=== PATIENT | female | born 1965 | race Caucasian/White ===

== ENCOUNTER 2017-04-11 18:58 | Emergency (ER) | payer BC ==
[~2017-04-11] VITALS: Ht 175.3 cm; Wt 80.0 kg
[~2017-04-11 18:58] MED LIST: ALBUAER2 INH; ALPR-411 PO; ASPI81TA28 PO; BUME1TAB PO; CYNI1000 INJ; DIPH25TA2 PO; EFF75 PO; FERR325T51 PO; FLNIN NAE; GABA-113 PO; IRON20IN IV; LIDO1PAD2 TD; LRS20 PO; MIRT30TA3 PO; MORP1TAB12 PO; NATURAL SUPPLEMENT PO; OXYC-164 PO; RANI300T2 PO; STLS PO; TRIA0.1C20 EXT
[2017-04-11 19:07] VITALS: TEMP 36.8; Ht 175.3 cm; Wt 80.0 kg
[2017-04-11] MEDS ORDERED: SODIUM CHLORIDE 0.9% 1000ML 1,000 ML IV STA ×3 (19:12→22:25)
[2017-04-11] MEDS ORDERED: ONDANSETRON INJ 2 MG/ML 2 ML VIAL IV STA (19:12)
[2017-04-11] MEDS ORDERED: OPTIRAY 320 IV PRN (19:30)
[2017-04-11] MEDS ORDERED: PRED10TA PO (19:40)
[2017-04-11] MEDS ORDERED: FRRS300 PO (19:40)
[2017-04-11] MEDS ORDERED: VNTHFA/IN INH (19:40)
[2017-04-11] MEDS ORDERED: DOXY100C2 PO (19:40)
[2017-04-11] MEDS ORDERED: LRS20 PO (19:40)
[2017-04-11] MEDS ORDERED: FLUT0.15 NAE (19:40)
[2017-04-11] MEDS ORDERED: OFLO0.3S4 OT (19:40)
[2017-04-11 19:43] LABS: BASO % 0.1 %; BASO ABS # 0.02 K/uL (0-0.2); COMPLETE YES; HEMATOCRIT 41.6 % (37-47); IG% 0.2 %; LYMPH % 7.1 %; LYMPH ABS # 1.01 K/uL (1.2-3.4); MEAN CORPUSCULAR HEMOGLOBIN 30.2 pg (25-34); MEAN CORPUSCULAR HGB CONC 33.2 g/dl (32-36); MEAN PLATELET VOLUME 11.3 fL (7.4-10.4); MONO % 5.4 %; NEUT % 87.2 %; PLATELET COUNT 193 K/uL (130-400); RED BLOOD COUNT 4.57 M/uL (4.2-5.4); WHITE BLOOD COUNT 14.17 K/uL (4.8-10.8)
[2017-04-11] MEDS: MoRPHine SULFATE 4 MG/ML 1 ML CARP\\VIAL IV PRN ×3 (19:49→23:29)
[2017-04-11 19:53] LABS: ISTAT CREATININE 0.8 mg/dl (0.6-1.3); ISTAT HEMOGLOBIN 13.9 g/dl (12.0-16.0); ISTAT IONIZED CALCIUM 1.08 mmol/l (1.12-1.32)
[2017-04-11 20:00] LABS: BUN/CREATININE RATIO 12.1 (10-20); CALCIUM 8.8 mg/dl (8.5-10.1); CREATININE 0.85 mg/dl (0.60-1.20); POTASSIUM 3.8 mmol/L (3.5-5.1)
[2017-04-11] MEDS ORDERED: FAMOTIDINE 20MG/102 ML D5W IV STA (21:07)
[2017-04-11] MEDS ORDERED: CEFOXITIN 2000MG/60 ML D5W IV STA (21:19)
--- NOTE | 2017-04-11 21:21 | DIAGNOSTIC IMAGING REPORT ---
CT ABD/PELVIS IV CONTRAST ONLY CLINICAL HISTORY: Upper abdominal pain. History of gastric bypass. COMPARISON STUDY: None. TECHNIQUE: Following the IV administration of 115 mL of Optiray-320, CT scan of the abdomen and pelvis was performed from the lung bases to the proximal femurs. Images are reviewed in the axial, sagittal, and coronal planes. IV contrast was administered without complication. CT DOSE: 705.04 mGycm FINDINGS: Lower chest: There are minor basilar atelectatic changes Liver: No focal hepatic masses are visualized. There is focal fat adjacent the falciform ligament. There is mild intra and extrahepatic biliary ductal dilatation. The common bile duct measures 12 mm. Gallbladder: Surgically absent Spleen: There is perisplenic fluid. No intrinsic splenic lesions are visualized. Pancreas: There is hyperdense fluid surrounding the inferior aspect of the stomach, the pancreas, as well as the splenic vein. The collection measures approximately 10 cm. There are multiple splenic varices. Likely diagnostic considerations include acute pancreatitis, or a retroperitoneal hemorrhage, unrelated to acute pancreatitis Adrenal glands: Unremarkable. Kidneys: There is symmetric renal cortical enhancement. The kidneys are normal in size without hydronephrosis. Bowel: There are no transition zones indicate bowel obstruction. There are postsurgical changes of a gastric bypass. There is no acute diverticulitis. The appendix appears normal. Peritoneum: There is minimal pelvic fluid. There is a small amount of fluid within the left paracolic gutter. Vasculature: The abdominal aorta is normal in course and caliber. Adenopathy: None. Pelvic viscera: The uterus appears surgically absent. Skeletal structures: No destructive osseous lesions are seen. IMPRESSION: 1. Complex left upper quadrant retroperitoneal fluid collection enveloping the pancreas, inferior aspect of the stomach, and surrounding the spleen. This measures in excess of 10 cm. Likely diagnostic considerations include acute pancreatitis, or a retroperitoneal hemorrhage unrelated to acute pancreatitis 2. No evidence of bowel obstruction. No evidence of free air 3. No evidence of acute diverticulitis. No evidence of acute appendicitis. 4. Intra and extrahepatic biliary ductal dilatation Electronically signed by: Primo Almonte M.D. 04/11/2017 9:19 PM Dictated Date/Time: 04/11/2017 9:11 PM
[2017-04-11] MEDS ORDERED: PANTOprazole INJ 80 MG in DEXTROSE 5% 100ML IV STA (21:36)
[2017-04-11] MEDS ORDERED: PANTOprazole INJ 40 MG in DEXTROSE 5% 100ML IV SCH (22:00)
--- NOTE | 2017-04-11 22:29 | EMERGENCY ROOM VISIT NOTE ---
History Report prepared by Rosa: Danish Del Rosario Under the Supervision of: Dr. Dwight Wisdom D.O. First contact with patient: 18:59 Chief Complaint: ABDOMINAL PAIN Stated Complaint: AB PAIN History of Present Illness The patient is a 51 year old female who presents to the Emergency Room by EMS with complaints of constant centralized abdominal pain beginning 7.5 hours ago. She has a history of gastric bypass in 2007, endometriosis, and a complete hysterectomy. She has a history of chronic low back pain, but states that it is unchanged. The patient also complains of two episodes of vomiting. She denies any fevers or diarrhea. Source of History: patient Onset: 7.5 hours ago Position: abdomen (centralized) Timing: constant Associated Symptoms: + vomiting (two episodes), No fevers, No diarrhea Review of Systems See HPI for pertinent positives & negatives. A total of 10 systems reviewed and were otherwise negative. Past Medical & Surgical Medical Problems: (1) Allergic rhinitis (2) Cooper's palsy (3) Carpal tunnel syndrome (4) Cauda equina syndrome with neurogenic bladder (5) Chronic pain (6) Depression (7) Gastroesophageal reflux disease (8) HERPES ZOSTER BY HISTORY (9) Hyperlipidemia (10) LEFT FOOT DROP (11) lumbar disc disease (12) Migraine (13) CARABALLO (14) Postconcussion syndrome Family History No pertinent family history Social History Smoking Status: Never Smoker Marital Status: Housing Status: lives with significant other Current/Historical Medications Scheduled Albuterol Hfa (Ventolin Hfa), 2-4 PUFFS INH Q6H Aspirin (Aspirin Ec), 81 MG PO QPM Baclofen (Baclofen), 20 MG PO TID Cyanocobalamin (Cyanocobalamin), 1,000 MCG INJ MONTHLY Doxycycline Hyclate (Vibramycin), 100 MG PO BID Ferrous Sulfate (Ferrous Sulfate), 325 MG PO BID Gabapentin (Neurontin), 300 MG PO TID Iron Sucrose (Venofer), 200 MG IV MONTHLY Mirtazapine (Remeron), 30 MG PO HS Ofloxacin (Oph) (Ocuflox Oph Soln), 1 DROP OT DIRECTED Prednisone (Prednisone), 10 MG PO TAPER Ranitidine (Zantac), 300 MG PO HS Stool Softener (Stool Softener), 1 TAB PO PRN Triamcinolone Acet 0.1% (Aristocort 0.1%), EXT BID UD Venlafaxine Hcl (Effexor), 75 MG PO BID Scheduled PRN Alprazolam (Xanax), 0.5 MG PO BID PRN for Anxiety Bumetanide (Bumex), 2 MG PO DAILY PRN for SWELLING OF FEET Diphenhydramine Hcl (Allergy Relief), 25 MG PO DAILY PRN for ALLERGIC REACTION Fluticasone Propionate (Nasal) (Flonase Allergy Relief), 2 SPRAYS SILVANA DAILY PRN for prn Lidocaine (Lidocaine), 2 PATCH TD DAILY PRN for SHINGLE NERVE PAIN Oxycodone Hcl (Oxycodone Hcl), 30 MG PO Q4H PRN for Pain Allergies Coded Allergies: Penicillins (Verified Allergy, Severe, RASH AND ANAPHYLAXIS, 04/11/17) Oxcarbazepine (Verified Allergy, Mild, ITCHING, 04/11/17) Sulfa Antibiotics (Verified Allergy, Mild, RASH, 04/11/17) Egg (Unverified Allergy, Unknown, unknown, 04/11/17) Furosemide (Verified Allergy, Unknown, RASH AND EXTREMITY SWELLING, ) Methadone (Verified Allergy, Unknown, DYSKINESIAS, 04/11/17) Shrimp (Unverified Allergy, Unknown, unknown, 04/11/17) Omeprazole (Verified Adverse Reaction, Mild, DIARRHEA, 04/11/17) Physical Exam Vital Signs Date Time Temp Pulse Resp B/P (MAP) Pulse Ox O2 Delivery O2 Flow Rate FiO2 04/11/17 22:34 65 18 156/75 96 Room Air 04/11/17 22:01 67 04/11/17 20:43 68 18 145/81 98 Room Air 04/11/17 19:07 36.8 66 20 145/66 99 Room Air Physical Exam GENERAL: Patient is awake, alert, and very anxious and uncomfortable appearing. Appears to be in significant pain. EYES: The conjunctivae are clear. The pupils are round and reactive. EARS, NOSE, MOUTH AND THROAT: The nose is without any evidence of any deformity. Mucous membranes are moist tongue is midline NECK: The neck is nontender and supple. RESPIRATORY: Normal respiratory effort is noted there is no evidence of wheezing rhonchi or rales CARDIOVASCULAR: Regular rate and rhythm noted there no murmurs rubs or gallops normal S1 normal S2 GASTROINTESTINAL: The abdomen is soft with diffuse tenderness to palpation. No specific guarding or rigidity noted. MUSCULOSKELETAL/EXTREMITIES: There is no evidence of gross deformity full range of motion is noted in the hips and shoulders SKIN: There is no obvious evidence of any rash. There are no petechiae, pallor or cyanosis noted. NEUROLOGIC: Patient is awake alert and oriented x3 strength is symmetric patellar reflexes are 2+ bilaterally Medical Decision & Procedures ER Provider Diagnostic Interpretation: CT results as stated below per my review and radiologist interpretation. CT ABD/PELVIS IV CONTRAST ONLY FINDINGS: Lower chest: There are minor basilar atelectatic changes Liver: No focal hepatic masses are visualized. There is focal fat adjacent the falciform ligament. There is mild intra and extrahepatic biliary ductal dilatation. The common bile duct measures 12 mm. Gallbladder: Surgically absent Spleen: There is perisplenic fluid. No intrinsic splenic lesions are visualized. Pancreas: There is hyperdense fluid surrounding the inferior aspect of the stomach, the pancreas, as well as the splenic vein. The collection measures approximately 10 cm. There are multiple splenic varices. Likely diagnostic considerations include acute pancreatitis, or a retroperitoneal hemorrhage, unrelated to acute pancreatitis Adrenal glands: Unremarkable. Kidneys: There is symmetric renal cortical enhancement. The kidneys are normal in size without hydronephrosis. Bowel: There are no transition zones indicate bowel obstruction. There are postsurgical changes of a gastric bypass. There is no acute diverticulitis. The appendix appears normal. Peritoneum: There is minimal pelvic fluid. There is a small amount of fluid within the left paracolic gutter. Vasculature: The abdominal aorta is normal in course and caliber. Adenopathy: None. Pelvic viscera: The uterus appears surgically absent. Skeletal structures: No destructive osseous lesions are seen. IMPRESSION: 1. Complex left upper quadrant retroperitoneal fluid collection enveloping the pancreas, inferior aspect of the stomach, and surrounding the spleen. This measures in excess of 10 cm. Likely diagnostic considerations include acute pancreatitis, or a retroperitoneal hemorrhage unrelated to acute pancreatitis 2. No evidence of bowel obstruction. No evidence of free air 3. No evidence of acute diverticulitis. No evidence of acute appendicitis. 4. Intra and extrahepatic biliary ductal dilatation Electronically signed by: Primo Almonte M.D. Laboratory Results 04/11/17 19:33 Red Blood Count 4.57, Mean Corpuscular Volume 91.0, Mean Corpuscular Hemoglobin 30.2, Mean Corpuscular Hemoglobin Concent 33.2, Mean Platelet Volume 11.3, Neutrophils (%) (Auto) 87.2, Lymphocytes (%) (Auto) 7.1, Monocytes (%) (Auto) 5.4, Eosinophils (%) (Auto) 0.0, Basophils (%) (Auto) 0.1, Neutrophils # (Auto) 12.35, Lymphocytes # (Auto) 1.01, Monocytes # (Auto) 0.76, Eosinophils # (Auto) 0.00, Basophils # (Auto) 0.02 04/11/17 19:33 Test 04/11/17 19:33 04/11/17 19:37 04/11/17 19:41 04/11/17 22:25 White Blood Count 14.17 K/uL (4.8-10.8) Red Blood Count 4.57 M/uL (4.2-5.4) Hemoglobin 13.8 g/dL (12.0-16.0) Hematocrit 41.6 % (37-47) Mean Corpuscular Volume 91.0 fL (80-100) Mean Corpuscular Hemoglobin 30.2 pg (25-34) Mean Corpuscular Hemoglobin Concent 33.2 g/dl (32-36) Platelet Count 193 K/uL (130-400) Mean Platelet Volume 11.3 fL (7.4-10.4) Neutrophils (%) (Auto) 87.2 % Lymphocytes (%) (Auto) 7.1 % Monocytes (%) (Auto) 5.4 % Eosinophils (%) (Auto) 0.0 % Basophils (%) (Auto) 0.1 % Neutrophils # (Auto) 12.35 K/uL (1.4-6.5) Lymphocytes # (Auto) 1.01 K/uL (1.2-3.4) Monocytes # (Auto) 0.76 K/uL (0.11-0.59) Eosinophils # (Auto) 0.00 K/uL (0-0.5) Basophils # (Auto) 0.02 K/uL (0-0.2) RDW Standard Deviation 44.1 fL (36.4-46.3) RDW Coefficient of Variation 13.4 % (11.5-14.5) Immature Granulocyte % (Auto) 0.2 % Immature Granulocyte # (Auto) 0.03 K/uL (0.00-0.02) Prothrombin Time 10.5 SECONDS (9.0-12.0) Prothromb Time International Ratio 1.0 (0.9-1.1) Activated Partial Thromboplast Time 22.9 SECONDS (21.0-31.0) Partial Thromboplastin Ratio 0.9 Est Creatinine Clear Calc Drug Dose 87.7 ml/min Estimated GFR () 91.3 Estimated GFR (Non- 78.8 BUN/Creatinine Ratio 12.1 (10-20) Calcium Level 8.8 mg/dl (8.5-10.1) Total Bilirubin 0.4 mg/dl (0.2-1) Direct Bilirubin 0.1 mg/dl (0-0.2) Aspartate Amino Transf (AST/SGOT) 64 U/L (15-37) Alanine Aminotransferase (ALT/SGPT) 54 U/L (12-78) Alkaline Phosphatase 125 U/L (45-117) Total Protein 6.8 gm/dl (6.4-8.2) Albumin 3.9 gm/dl (3.4-5.0) Amylase Level 40 U/L (25-115) Lipase 196 U/L (73-393) Bedside Lactic Acid Venous 1.82 mmol/L (0.90-1.70) Bedside Hemoglobin 13.9 g/dl (12.0-16.0) Bedside Hematocrit 41 % (37-47) Bedside Sodium 143 mEq/L (135-144) Bedside Potassium 3.7 mEq/L (3.3-5.0) Bedside Chloride 103 mEq/L (101-112) Bedside Total CO2 26 mEq/l (24-31) Anion Gap 19.0 mmol/L (16-25) Bedside Blood Urea Nitrogen 10 mg/dl (7-18) Bedside Creatinine 0.8 mg/dl (0.6-1.3) Bedside Glucose (other) 128 mg/dl (70-99) Bedside Ionized Calcium (Annabel) 1.08 mmol/l (1.12-1.32) Urine Color DK YELLOW Urine Appearance CLEAR (CLEAR) Urine pH 5.0 (4.5-7.5) Urine Specific [place] > 1.045 (1.000-1.030) Urine Protein NEG (NEG) Urine Glucose (UA) 1+ (NEG) Urine Ketones NEG (NEG) Urine Occult Blood NEG (NEG) Urine Nitrite NEG (NEG) Urine Bilirubin NEG (NEG) Urine Urobilinogen NEG (NEG) Urine Leukocyte Esterase NEG (NEG) Laboratory results per my review. Medications Administered Medications (Trade) Dose Ordered Sig/Carli Route Start Time Stop Time Status Last Admin Dose Admin Sodium Chloride 1,000 ml @ 999 mls/hr Q1H1M STAT IV 04/11/17 19:12 04/11/17 20:12 DC 04/11/17 19:48 999 MLS/HR Morphine Sulfate (MoRPHine SULFATE INJ) 4 mg Q15M PRN IV 04/11/17 19:15 04/25/17 19:14 04/11/17 23:29 4 MG Ondansetron HCl (Zofran Inj) 4 mg NOW STAT IV 04/11/17 19:12 04/11/17 19:15 DC 04/11/17 19:48 4 MG Famotidine (Pepcid 20mg/100 ml) 20 mg ONE STAT IV 04/11/17 21:07 04/11/17 21:08 DC 04/11/17 23:05 20 MG Cefoxitin Sodium (Mefoxin 2000mg/ 60 ml D5W) 2,000 mg NOW STAT IV 04/11/17 21:19 04/11/17 21:20 DC 04/11/17 22:32 2,000 MG Sodium Chloride 1,000 ml @ 250 mls/hr Q4H STAT IV 04/11/17 22:25 04/12/17 02:24 04/11/17 22:32 250 MLS/HR ED Course 1904: The patient was evaluated in room B4B. A complete history and physical examination were performed. 1911: Ordered Zofran Inj 4 mg IV, NSS 1,000 ml @ 250 mls/hr IV, NSS 1,000 ml @ 999 mls/hr IV. 1914: Ordered Morphine Sulfate 4 mg IV. 2106: Ordered Pepcid 20 mg/100 mL IV, Protonix IV Bolus/Drip IV. 2118: Ordered Mefoxin 2000 mg/60 mL D5W 2000 mg IV. 2135: Ordered Pantoprazole Sodium 80 mg/Dextrose 120 mL @ 480 mL/hr Iv. 2158: Upon reevaluation, the patient is resting. I discussed results and treatment plan with her. She verbalizes agreement and understanding. I spoke with Dr. Purvis of [facility] Bariatric Surgery . The patient will be transferred to [facility] by ground. 2199: Ordered Pantoprazole Sodium 40 mg/Dextrose 100 mL @ 20 mL/hr IV. 2224: Ordered NSS 1,000 ml @ 250 mls/hr IV. Medical Decision Differential diagnosis: Etiologies such as appendicitis, diverticulitis, PUD, biliary pathology, UTI, pancreatitis, obstruction, mesenteric ischemia, aortic pathology, infections, inflammatory bowel disease, renal colic, as well as others were entertained. Nursing notes reviewed. The patient is a 51-year-old female who presented to emergency department for an evaluation of upper abdominal pain. The patient is a history of gastric bypass and had very severe upper abdominal pain. The patient was treated with IV fluids IV pain medicine and IV antiemetics in the emergency department. Her CAT scan appear to be consistent with an abnormality in the retroperitoneum. Given the patient's past surgical history is possible this represents some abnormality with peptic ulcer disease or duodenal ulcer disease. The CT was thought to be consistent with possible retroperitoneal bleed or possible pancreatitis. Given the patient's differentials I discussed her case with the on -call general surgeon at our facility. Given the patient's surgical history she recommended I discussed the case with the [facility] and the bariatric surgeon. When I discussed the case with the bariatric surgeon he was very concerned about the patient's overall condition. He requested that we transfer the patient to their facility for further management and disposition. The patient was further treated with proton pump inhibitors and IV fluids. She was also given IV antibiotics in emergency department. I discussed the patient' s laboratory and radiographic studies with her. She was agreeable to transfer at this time. [place] Drug Monitoring Program Search Results: patient reviewed within database, see additional documentation Drug Monitoring Findings: The patient received 180 Oxycodone tablets on March 26 which she appears to receive monthly. Consults Time Called: 2139 Consulting Physician: Dr. Jett -General Surgery Returned Call: [phone] I discussed the patient's case with Dr. Jett. She recommends that the patient be discussed with a tertiary care center. Additional Consults: Time Called: 2209 Consulted Physician: Dr. Purvis -[facility] Bariatric Surgery Returned Call: [phone] Additional Comments: I discussed the patient's case with Dr. Purvis. The patient will be transferred to [facility] by ground. Impression Primary Impression: Retroperitoneal hematoma Additional Impression: Abdominal pain Critical Care I have personally spent greater than 45 minutes of critical care time in the direct management of this patient. This includes bedside care, interpretation of diagnostic studies, and testing, discussion with consultants, patient, and family members, and other required patient management activities. This 45 minutes is in excess of all separately billable procedures. Scribe Attestation The scribe's documentation has been prepared under my direction and personally reviewed by me in its entirety. I confirm that the note above accurately reflects all work, treatment, procedures, and medical decision making performed by me. Departure Information Dispostion Transfer Acute Care Facility ([facility] by ground) Referrals Armani Eden D.O. (PCP) Patient Instructions [facility] Problem Qualifiers Additional Impression: Abdominal pain Abdominal location: epigastric Qualified Codes: R10.13 - Epigastric pain
[2017-04-11 22:39] LABS: PARTIAL THROMBOPLASTIN RATIO 0.9; PROTHROMBIN TIME (PATIENT) 10.5 SECONDS (9.0-12.0)
[2017-04-11 22:41] LABS: URINE APPEARANCE CLEAR (CLEAR); URINE BILIRUBIN NEG (NEG); URINE COLOR DK YELLOW; URINE NITRITE NEG (NEG); URINE SPECIFIC GRAVITY > 1.045 (1.000-1.030); UROBILINOGEN NEG (NEG)
[2017-04-11 22:44] LABS: MANUAL MICROSCOPIC REQUIRED? NO; REVIEW REQ? NO
[2017-04-11] MEDS ORDERED: ONDANSETRON INJ 2 MG/ML 2 ML VIAL ONE (23:39)
[2017-04-12] MEDS: MoRPHine SULFATE 4 MG/ML 1 ML CARP\\VIAL IV PRN
[2017-04-12] MEDS: HYDROmorphone INJ 1 MG/ML SYR IV PRN ×3 (00:08→01:12)
[2017-04-12 01:41] VITALS: BP 157/88; PULSE 89; O2SAT 98
== END 2017-04-12 01:41 | disposition short-term general hospital (02) ==
LOC: EDBD 18:58 → C.EDB 18:59
DX: K66.1 Hemoperitoneum (principal); G89.29 Other chronic pain; Z98.84 Bariatric surgery status; Z90.710 Acquired absence of both cervix and uterus; Z79.899 Other long term (current) drug therapy; K21.9 Gastro-esophageal reflux disease without esophagitis